=== PATIENT | female | born 2000 | race Caucasian/White ===

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

== ENCOUNTER 2019-01-11 10:27 | Emergency (ER) | payer MEDICAID ==
[~2019-01-11] VITALS: Ht 165.1 cm; Wt 58.6 kg
[2019-01-11 10:38] VITALS: BP 128/63
--- NOTE | 2019-01-11 10:41 | NUR ---
PT AMBULATED TO LOBBY AT THIS TIME, VSS
--- NOTE | 2019-01-11 11:40 | NUR ---
C/O CONSTANT LUQ SHARP 8/10 PAIN STARTING YESTERDAY AFTERNOON. PT DENIES N/V/D, FEVER, DYSURIA, OR FREQUENCY. ABD IS SOFT, FLAT AND TENDER TO PALPATION IN LUQ, BOWEL SOUNDS PRESENT X4, LBM 01/10/19 AND REGULAR PER PT. BED IN LOW POSITION, SIDE RAIL UP X1. MOM WITH PATIENT AT BEDSIDE.
--- NOTE | 2019-01-11 11:52 | NUR ---
Dr. Reese is evaluating the patient at bedside.
[2019-01-11 12:30] VITALS: BP 130/67
== END 2019-01-11 12:30 | disposition home or self-care (01) ==
LOC: MED 10:27
DX: K59.00 Constipation, unspecified (principal)
CPT/HCPCS: 81002; 81025; 99284

== ENCOUNTER 2019-04-19 10:03 | Emergency (ER) | payer MEDICAID, OTHER ==
[~2019-04-19] VITALS: Ht 165.1 cm; Wt 60.9 kg
[2019-04-19 10:07] VITALS: BP 92/58
[2019-04-19] MEDS ORDERED: KETOROLAC 60 MG/2 ML VIAL IM ONE (10:55)
[2019-04-19 12:20] VITALS: BP 124/75
== END 2019-04-19 12:20 | disposition home or self-care (01) ==
LOC: MED 10:03
DX: R51 Headache (principal); R42 Dizziness and giddiness
CPT/HCPCS: 96372; 99283; J1885

== ENCOUNTER 2022-11-28 20:26 | Emergency (ER) | payer OTHER ==
[~2022-11-28] VITALS: Ht 165.1 cm; Wt 77.1 kg
[2022-11-28 20:30] VITALS: BP 116/70; PULSE 70; RESP 17; TEMP 97.6; O2SAT 100
[2022-11-28] MEDS ORDERED: ACET-10509 PO (21:01)
== END 2022-11-28 21:15 | disposition home or self-care (01) ==
LOC: MED 20:26
DX: R51.9 Headache, unspecified (principal); Z79.899 Other long term (current) drug therapy
CPT/HCPCS: 99281

== ENCOUNTER 2023-03-22 05:20 | Emergency (ER) | payer OTHER ==
[~2023-03-22] VITALS: Ht 165.1 cm; Wt 72.6 kg
[~2023-03-22 05:20] MED LIST: ACET-10509 PO
[2023-03-22 05:25] VITALS: BP 101/69; PULSE 74; RESP 16; TEMP 97.1; O2SAT 100
[2023-03-22 07:35] LABS: APPEARANCE,URINE CLEAR (CLEAR); BILIRUBIN,URINE NEGATIVE (NEGATIVE); BLOOD, URINE NEGATIVE (NEGATIVE); COLOR,URINE YELLOW (YELLOW); LEUKOCYTE ESTERASE ,URINE NEGATIVE (NEGATIVE); NITRITE, URINE NEGATIVE (NEGATIVE); PROTEIN,URINE NEGATIVE (NEGATIVE); UGLUCOSE NEGATIVE (NEGATIVE); UROBILINOGEN,URINE 0.2 EU/dL (0.2 - 1)
[2023-03-22 07:50] VITALS: BP 101/69; PULSE 74; RESP 16; TEMP 97.1; O2SAT 100
== END 2023-03-22 07:50 | disposition home or self-care (01) ==
LOC: MED 05:20
DX: O26.892 Other specified pregnancy related conditions, second trimester (principal); Z3A.15 15 weeks gestation of pregnancy; Z79.899 Other long term (current) drug therapy
CPT/HCPCS: 81003; 99284

== ENCOUNTER 2023-04-16 21:23 | Emergency (ER) | payer OTHER ==
[~2023-04-16] VITALS: Ht 165.1 cm; Wt 74.8 kg
[2023-04-16 21:45] VITALS: BP 121/73; PULSE 75; RESP 17; TEMP 97.8; O2SAT 100
[2023-04-16 22:00] LABS: APPEARANCE,URINE CLEAR (CLEAR); BILIRUBIN,URINE NEGATIVE (NEGATIVE); BLOOD, URINE 1+ (NEGATIVE); COLOR,URINE YELLOW (YELLOW); LEUKOCYTE ESTERASE ,URINE NEGATIVE (NEGATIVE); NITRITE, URINE NEGATIVE (NEGATIVE); PH,URINE 6.5 (5.0-9.0); PROTEIN,URINE NEGATIVE (NEGATIVE); UGLUCOSE NEGATIVE (NEGATIVE); UROBILINOGEN,URINE 0.2 EU/dL (0.2 - 1)
[2023-04-16 22:35] LABS: BASOPHILS % (AUTO) 0.2 % (0.0-2.0); EOSINOPHILS # (AUTO) 0.1 K/uL (0-0.4); EOSINOPHILS % (AUTO) 0.7 % (0.0-4.0); HEMATOCRIT 36.3 % (36-48); HEMOGLOBIN 12.3 g/dL (12.0-16.0); LYMPHOCYTES # (AUTO) 3.8 K/uL (2.5-16.5); LYMPHOCYTES % (AUTO) 20.6 % (20.5-51.1); MEAN CORPUSCULAR HEMOGLOBIN 28 pg (27-31); MEAN CORPUSCULAR HGB CONC 34 g/dL (33-37); MEAN CORPUSCULAR VOLUME 83.7 fL (80-94); MONOCYTES % (AUTO) 5.3 % (1.7-9.3); NEUTROPHILS # (AUTO) 13.5 K/uL (1.8-7.7); NEUTROPHILS % (AUTO) 73.2 % (42.2-75.2); PLATELET COUNT (AUTO) 232 K/uL (140-450); RED BLOOD CELL COUNT(AUTO) 4.33 MIL/uL (4.20-5.40); RED CELL DISTRIBUTION WIDTH 13.9 % (11.6-13.7); WHITE BLOOD COUNT (AUTO) 18.4 K/uL (4.8-10.8)
[2023-04-16 22:42] VITALS: BP 121/73; PULSE 75; RESP 16; O2SAT 99
[2023-04-16 22:45] LABS: ANION GAP 13.2 (8-16); CALCIUM 9.3 mg/dL (8.5-10.1); CARBON DIOXIDE 25.5 mmol/L (21-32); CREATININE 0.5 mg/dL (0.6-1.3); POTASSIUM 3.7 mmol/L (3.5-5.1)
== END 2023-04-17 01:59 | disposition home or self-care (01) ==
LOC: MED 21:23
DX: O20.0 Threatened abortion (principal); Z3A.18 18 weeks gestation of pregnancy; Z79.899 Other long term (current) drug therapy
CPT/HCPCS: 36415; 76805; 80048; 81003; 85025; 86901; 87491; 99284